=== PATIENT | female | born 1965 | race Caucasian/White ===

== ENCOUNTER → 2023-11-04 06:40 | Outpatient (REF) | payer BC, SELFPAY ==
[2023-11-04 12:42] LABS: % Basophils 0.7 % (0-2); % Eosinophils 1.2 % (0-6); % Immature Granulocytes 0.1 % (0-0.5); % Lymphocytes 43.3 % (20.5-51.1); % Monocytes 6.7 % (1.7-9.3); Absolute Basophils 0.1 10^3/uL (0-0.2); Absolute Eosinophils 0.1 10^3/uL (0-0.7); Absolute Lymphocytes 3.2 10^3/uL (1.2-3.4); Absolute Monocytes 0.5 10^3/uL (0.1-0.6); Absolute Neutrophils 3.6 10^3/uL (1.4-6.5); Hematocrit 40.6 % (37.0-47.0); Hemoglobin 13.6 g/dL (12.0-16.0); Mean Corp Hgb Conc. 33.5 g/dL (33.0-37.0); Mean Corpuscular Hgb 28.5 pg (27.0-31.0); Mean Corpuscular Volume 85.1 fL (81.0-99.0); Mean Platelet Volume 10.2 fL (7.4-10.4); Nucleated Red Blood Cells % 0 %; Platelet Count 286 10^3/uL (130-400); Red Blood Cell Count 4.77 10^6/uL (4.20-5.40); Red Cell Dist. Width 13.5 % (11.5-14.5); White Blood Cell Count 7.4 10^3/uL (4.8-10.8)
[2023-11-04 13:14] LABS: ALT (SGPT) 14 U/L (0-35); AST (SGOT) 27 U/L (14-36); Albumin 4.6 g/dl (3.5-5.0); Alkaline Phosphatase 80 U/L (38-126); Blood Urea Nitrogen 18 mg/dl (7-17); Calcium 9.9 mg/dl (8.4-10.2); Carbon Dioxide 26 mmol/L (22-30); Chloride 103 mmol/L (98-107); Glucose 81 mg/dl (70-99); HDL Cholesterol 77 mg/dl; LDL Cholesterol, Calculated 124 mg/dl; Potassium 4.1 mmol/L (3.5-5.1); Sodium 138 mmol/L (135-145); Total Bilirubin 0.7 mg/dl (0.2-1.3); Total Cholesterol 209 mg/dl (50-199); Triglyceride 43 mg/dl (10-149); Very Low Density Lipoprotein 8 mg/dl (0-30); eGFR > 60.00
[2023-11-04 13:42] LABS: TSH Reflex To Free T4 0.51 uIU/ml (0.47-4.68)
== END ==
LOC: REG 06:40
PROVIDERS: ATTENDING PHYSICIAN Nurse Practitioner
DX: Z00.00 Encounter for general adult medical examination without abnormal findings (principal)
CPT/HCPCS: 36415; 80053; 80061; 84443; 85025

== ENCOUNTER 2023-11-11 16:53 | Emergency (ER) | payer BC, SELFPAY ==
[2023-11-11 16:57] VITALS: BP 176/96
[2023-11-11 17:14] LABS: % Basophils 0.4 % (0-2); % Eosinophils 1.4 % (0-6); % Lymphocytes 42.6 % (20.5-51.1); % Monocytes 7.1 % (1.7-9.3); % Neutrophils 48.5 % (42.2-75.2); Absolute Eosinophils 0.1 10^3/uL (0-0.7); Absolute Monocytes 0.5 10^3/uL (0.1-0.6); Absolute Neutrophils 3.4 10^3/uL (1.4-6.5); Hemoglobin 13.3 g/dL (12.0-16.0); Mean Corp Hgb Conc. 33.3 g/dL (33.0-37.0); Mean Corpuscular Hgb 27.8 pg (27.0-31.0); Mean Corpuscular Volume 83.7 fL (81.0-99.0); Mean Platelet Volume 9.6 fL (7.4-10.4); Nucleated Red Blood Cells % 0 %; Platelet Count 303 10^3/uL (130-400); Red Blood Cell Count 4.78 10^6/uL (4.20-5.40); Red Cell Dist. Width 13.7 % (11.5-14.5); White Blood Cell Count 7.1 10^3/uL (4.8-10.8)
[2023-11-11 17:26] LABS: ALT (SGPT) 16 U/L (0-35); AST (SGOT) 30 U/L (14-36); Albumin 4.7 g/dl (3.5-5.0); Alkaline Phosphatase 79 U/L (38-126); Blood Urea Nitrogen 19 mg/dl (7-17); Calcium 9.7 mg/dl (8.4-10.2); Carbon Dioxide 30 mmol/L (22-30); Chloride 102 mmol/L (98-107); Glucose 96 mg/dl (70-99); Potassium 4.5 mmol/L (3.5-5.1); Sodium 143 mmol/L (135-145); Total Bilirubin 0.3 mg/dl (0.2-1.3); Total Protein 7.2 g/dl (6.3-8.2); eGFR > 60.00
[2023-11-11 17:37] LABS: Troponin I < 0.012 ng/ml
[2023-11-11 18:31] VITALS: BP 150/73
[2023-11-11 19:00] VITALS: BP 155/72
[2023-11-11 20:00] VITALS: BP 165/80
--- NOTE | 2023-11-11 20:21 | ED.GENMED ---
History of Present Illness
General
Chief Complaint: Chest Pain
Source: patient
Exam Limitations: none
Time Seen by Provider: 11/11/23 19:03
History of Present Illness
History of Present Illness:
This is a 58 year old female that comes in with c/o chest pain. States that for over a month she has had chest pressure. States that it is not all the time. Sates that her left chest feels funny and the pain is from the center of her chest over to
the left chest and under the left arm. States that this comes and goes. States that she saw her PCP on Wednesday for a routine appointment. States that her BP at first is always high but then it goes down. States that at night she also feels like her
heart is racing when she lays down but this goes away before she falls to sleep. States that she is under stress. States that she has also been lightheaded. Denies any fever, chills, chest pain at this time, SOB, abd pain, nausea, vomiting,
diarrhea, headache, dizziness, urinary burning.
Past History
Past History
ED Past Medical History: None; Negative Asthma, HTN, Hypercholesterolemia or NIDDM
ED Past Surgical History: and Other (Hernia repair)
Social History
Tobacco: Non-smoker
Alcohol: Occasional
Drug: None
Personal:
Living: with family
Employment: Employed
Family History
Family History: Negative Early CAD
Review of Systems
Review of Systems
All Other Systems: ROS reviewed and negative except as documented in HPI and ROS
Constitutional: Reports no symptoms; Denies fever or chills
EENT: Reports no symptoms
Respiratory: Reports no symptoms; Denies cough or trouble breathing
Cardiac: Reports chest pain
ABD/GI: Reports no symptoms; Denies abdominal pain, nausea, vomiting or diarrhea
: Reports no symptoms; Denies dysuria, frequency or urgency
Musculoskeletal: Reports no symptoms
Skin: Reports no symptoms
Neurological: Reports other (Lightheaded occasionally); Denies dizzy or headache
Psychiatric: Reports no symptoms
Phy Exam
General Physical Exam
General Presentation: well appearing and no apparent distress
General age: appears stated age
General Skin: warm and dry
General Habitus: normal
General Mental: alert
General Hydration: appears well hydrated
ENT Exam
ENT Exam: TM's normal, pharynx normal and neck supple
Eye Exam
Eye Exam: EOMI
Cardiovascular Exam
Cardiovascular Exam: regular rate/rhythm, no edema, no murmur and normal peripheral pulses
Pulmonary Exam
Pulmonary Exam: lungs clear, no respiratory distress, no rales, chest non tender, no crackles, no rhonchi, no wheezing and no cough
Gastrointestinal Exam
Gastrointestinal Exam: normal bowel sounds, non tender, soft, no organomegaly, no pulsatile mass and non distended
Musculoskeletal Exam
Musculoskeletal Exam: full ROM and no edema
Skin Exam
Skin Exam: normal color, warm/dry, no rash and no petechia
Psychiatric Exam
Psychiatric Exam: normal mood/affect
Scores
Heart Score for Chest Pain Patients
STEMI patient?: No
History: Slightly or Non-Suspicious
ECG: Normal
Age: >45 - <65 years
Risk Factors: No Risk Factors
Troponin: </= Normal Limit
Heart Score for Chest Pain Patients: 1
Heart Score Risk: 2.5% MACE over next 6 weeks
Course
Orders/Labs/Results
Orders:
Orders
11/11/23 16:54
Electrocardiogram (*1) Urgent
Reason for Study: Chest Pain
11/11/23 16:55
EKG- Treatment ONCE
11/11/23 17:08
Complete Blood Count/With Diff Urgent
Comprehensive Metabolic Panel Urgent
Troponin I Urgent
11/11/23 20:21
CR Chest - 2 Views Urgent
Comment:
Reason For Exam: Chest pain,
11/11/23 20:22
Electrocardiogram (*1) Urgent
Reason for Study: Chest Pain
Other Reason for Exam: Repeat with troponin
EKG- Treatment ONCE
11/11/23 20:39
Troponin I Urgent
Abnormal Lab Results
11/11/23
17:08
BUN 19 H mg/dl
(7-17)
11/11/23 17:08
11/11/23 17:08
Dehydration. Troponin <0.012
Second Troponin <0.012,
Vital Signs
Initial and Last Documented VS:
Initial Vital Signs
Temp Pulse Resp BP Pulse Ox
98.1 F 71 18 176/96 98
11/11/23 16:57 11/11/23 16:57 11/11/23 16:57 11/11/23 16:57 11/11/23 16:57
Last Documented Vital Signs
Temp Pulse Resp BP Pulse Ox
98.1 F 65 14 155/72 98
11/11/23 16:57 11/11/23 19:45 11/11/23 19:45 11/11/23 19:00 11/11/23 19:45
MDM/Problems Addressed
Differential Diagnosis Includes:
Coronary syndrome. Anxiety,
MDM/Problems Addressed:
This is a 58 year old female that comes in with c/o chest pain. States that this comes and goes. States that it is center to the left chest and under the left arm. Patient is pain free at this time.
Will check labs, Chest x-ray. will place patient on the Cardiology hot line for further evaluation.
Repeat ECG rate 54, Sinus bradycardia, Normal axis. QRS normal. Negative for ischemia
Will place patient on the Cardiology hot line for further evaluaiton.
Chronic conditions affecting care:
NA
Acute Exacerbation and/or Progression of Chronic Illness:
NA
*Radiology
Radiology exam reviewed: radiology read reviewed (CT chest =NO acute cardiopulmonary process)
*Pulse Oximetry
Patient hypoxic: no
*EKG
Interpreted by ED Provider?: Yes
Heart Rate: 67
Rate: normal
Rhythm: sinus
[place]: normal axis
Interval: normal interval
QRS Pattern: left vent hypertrophy
Ischemia: no ischemia
*[employer]ilos[employer] Interpretation
Rate: normal
Heart Rate: 65
Rhythm: sinus
*Critical Care Note
Total Time (30-74mins, 75-104mins- exclusive of procedures): Not Applicable
ED Attending Note
-
Portions of this chart may have been created with voice recognition software.� Occasional wrong word or��sound alike� substitutions may have occurred due to the inherent limitations of voice recognition software.
Discharge Plan
Departure
Patient Disposition: Home (Routine Discharge)
Date of Disposition: 11/11/23
Time of Disposition: 22:00
Patient with high blood pressure during this ER visit?: Yes
Condition: Good
Covid-19: Not Applicable
Discharge Problem:
Chest pain
Instructions: Chest Pain DCA Follow Up, BLOOD PRESSURE
Prescriptions:
No Action
aspirin 81 MG tablet,chewable
81 mg PO DAILY
Patient Comments:
Pt started taking this med 2 days ago because of chest pain.
Referrals:
Ligia Chou CRNP [Family Provider] - Call in 1-3 days for appt
Activity Restrictions/Additional Instructions:
As discussed, your blood work shows slight Dehydration. Please increase your water intake to 8-8oz glasses daily. Your both Troponin are normal. You have been place on the Cardiology hot line for further evaluation. You will be called the next
business day to set up an appointment for further evaluation. IF YOU HAVE INCREASED OR CHANGING PAIN, OR YOU HAVE ANY OTHER CONCERNS. PLEASE RETURN TO THE EMERGENCY ROOM.
Interventions
Interventions:
*Risk Screen - Suicide Last Done: 11/11/23 16:57
*General Assessment Last Done: 11/11/23 16:57
*Neglect/Abuse Screening Last Done: 11/11/23 16:57
ED- Fall Risk Assessment Last Done: 11/11/23 18:43
ED- Cardiac Assessment Last Done: 11/11/23 18:43
Discharge Date and Time
Print Language: CUBAN
[2023-11-11 21:38] LABS: Troponin I < 0.012 ng/ml
== END 2023-11-11 22:13 | disposition home or self-care (01) ==
LOC: EMR 16:53
PROVIDERS: Clinical Nurse Specialist Family Health; Emergency Medicine; EMERGENCY PHYSICIAN Student in an Organized Health Care Education/Training Program; FAMILY PHYSICIAN Nurse Practitioner
DX: R07.89 Other chest pain (principal); R42 Dizziness and giddiness; R00.2 Palpitations; R03.0 Elevated blood-pressure reading, without diagnosis of hypertension
CPT/HCPCS: 99284; 71046; 80053; 84484; 85025; 93005

== ENCOUNTER → 2023-12-28 09:42 | Outpatient (REF) | payer BC, SELFPAY | LOC: RCS 09:42 | PROVIDERS: ATTENDING PHYSICIAN Internal Medicine Cardiovascular Disease; FAMILY PHYSICIAN Nurse Practitioner; REFERRING PHYSICIAN Internal Medicine | DX: R07.2 Precordial pain (principal); R94.31 Abnormal electrocardiogram [ECG] [EKG] | CPT/HCPCS: 93017; 93350 ==

== ENCOUNTER → 2024-08-21 15:19 | Outpatient (REF) | payer BC, SELFPAY | LOC: CPAP 15:19 | PROVIDERS: ATTENDING PHYSICIAN Obstetrics & Gynecology Gynecology | DX: Z01.419 Encounter for gynecological examination (general) (routine) without abnormal findings (principal) | CPT/HCPCS: 87624 ==

== ENCOUNTER → 2024-10-31 06:11 | Outpatient (REF) | payer BC, SELFPAY ==
[2024-10-31 07:36] LABS: Hematocrit 41.8 % (37.0-47.0); Hemoglobin 13.1 g/dL (12.0-16.0); Mean Corp Hgb Conc. 31.3 g/dL (33.0-37.0); Mean Corpuscular Volume 87.3 fL (81.0-99.0); Nucleated Red Blood Cells % 0 %; Platelet Count 281 10^3/uL (130-400); Red Cell Dist. Width 13.7 % (11.5-14.5)
[2024-10-31 08:18] LABS: ALT (SGPT) 12 U/L (0-35); AST (SGOT) 21 U/L (14-36); Albumin 4.5 g/dl (3.5-5.0); Alkaline Phosphatase 66 U/L (38-126); Blood Urea Nitrogen 18 mg/dl (7-17); Calcium 9.6 mg/dl (8.4-10.2); Carbon Dioxide 28 mmol/L (22-30); Chloride 104 mmol/L (98-107); Glucose 68 mg/dl (70-99); HDL Cholesterol 81 mg/dl; LDL Cholesterol, Calculated 118 mg/dl; Potassium 4.3 mmol/L (3.5-5.1); Sodium 139 mmol/L (135-145); Total Protein 7.1 g/dl (6.3-8.2); Very Low Density Lipoprotein 14 mg/dl (0-30); eGFR > 60.00
== END ==
LOC: REG 06:11
PROVIDERS: ATTENDING PHYSICIAN Physician Assistant
DX: Z76.89 Persons encountering health services in other specified circumstances (principal); Z13.29 Encounter for screening for other suspected endocrine disorder; Z13.1 Encounter for screening for diabetes mellitus; Z13.220 Encounter for screening for lipoid disorders; Z13.0 Encounter for screening for diseases of the blood and blood-forming organs and certain disorders involving the immune mechanism
CPT/HCPCS: 36415; 80053; 80061; 84443; 85025